=== PATIENT | male | born 1950 | race Caucasian/White ===

== ENCOUNTER 2018-03-10 13:25 | Outpatient (CLI) | payer BC, MEDICARE ==
[~2018-03-10] VITALS: Ht 167.6 cm; Wt 78.0 kg
[~2018-03-10 13:25] MED LIST: ASP325T PO; FENO145T2 PO; FLUT16SP22 NS; METO50TA7 PO; OLME40TA14 PO; RANI25TA PO; SMV20T PO
[2018-03-10 14:11] LABS: CLARITY,URINE CLEAR; COLOR,URINE YELLOW; PH,URINE 6.5 (5-9); PROTEIN,URINE NEGATIVE (NEGATIVE)
[2018-03-10 14:11] LABS: BASOPHILS # (AUTO) 0.1 10^3/uL (0.0-0.1); BASOPHILS % (AUTO) 1 % (0-10); EOSINOPHILS # (AUTO) 0.2 10^3/uL (0.0-0.3); EOSINOPHILS % (AUTO) 2 % (0-10); HEMATOCRIT 41 % (40-54); LYMPHOCYTES # (AUTO) 3.9 X 10^3 (1.0-4.0); LYMPHOCYTES % (AUTO) 35 % (12-44); MEAN CORPUSCULAR HEMOGLOBIN 30 PG (25-34); MEAN CORPUSCULAR HGB CONC 34 G/DL (32-36); MEAN CORPUSCULAR VOLUME 87 FL (80-99); MEAN PLATELET VOLUME 10.7 FL (7.4-10.4); MONOCYTES % (AUTO) 9 % (0-12); NEUTROPHILS # (AUTO) 5.9 X 10^3 (1.8-7.8); NEUTROPHILS % (AUTO) 53 % (42-75); PLATELET COUNT 393 10^3/uL (130-400); RED CELL DISTRIBUTION WIDTH 14.1 % (10.0-14.5); WHITE BLOOD COUNT 11.1 10^3/uL (4.3-11.0)
[2018-03-10 14:12] LABS: BILIRUBIN,URINE NEGATIVE (NEGATIVE); GLUCOSE, URINE (UA) NEGATIVE (NEGATIVE); KETONES,URINE NEGATIVE (NEGATIVE); LEUKOCYTE ESTERASE ,URINE NEGATIVE (NEGATIVE); NITRITE,URINE NEGATIVE (NEGATIVE); UROBILINOGEN,URINE NORMAL (NORMAL)
[2018-03-10 14:13] VITALS: BP 155/83
[2018-03-10] MEDS ORDERED: RANI-425 PO (14:20)
--- NOTE | 2018-03-10 14:26 | Diagnostic Imaging Report ---
INDICATION: Preop for total knee arthroplasty. TIME OF EXAMINATION: 02:30 p.m. COMPARISON: Comparison is made with prior study from 10/14/2010. FINDINGS: The heart size is normal. The pulmonary vascularity is unremarkable. The lungs are clear. No infiltrate, effusion or pneumothorax is detected. IMPRESSION: No acute cardiopulmonary process is detected. Dictated by: Dictated on workstation # [id number]
[2018-03-10 14:28] LABS: BACTERIA,URINE TRACE /HPF; SQUAMOUS EPITHELIAL CELL,UR RARE /HPF
[2018-03-10] MEDS ORDERED: ALPR0.254 PO (14:28)
[2018-03-10] MEDS ORDERED: ASPI-999 PO (14:28)
[2018-03-10] MEDS ORDERED: OMEG-164 PO (14:28)
[2018-03-10] MEDS ORDERED: HYDR25TA4 PO (14:28)
[2018-03-10] MEDS ORDERED: AMLO10TA4 PO (14:28)
[2018-03-10] MEDS ORDERED: FENO145T37 PO (14:28)
[2018-03-10] MEDS ORDERED: OLME40TA18 PO (14:28)
[2018-03-10] MEDS ORDERED: MELO15TA39 PO (14:28)
[2018-03-10] MEDS ORDERED: SIMV20TA3 PO (14:28)
[2018-03-10 14:30] LABS: ALANINE AMINOTRANSFERASE 29 U/L (0-55); ALBUMIN 4.6 GM/DL (3.2-4.5); ALKALINE PHOSPHATASE 40 U/L (40-136); BILIRUBIN,TOTAL 0.4 MG/DL (0.1-1.0); BUN/CREATININE RATIO 27; CALCIUM 11.1 MG/DL (8.5-10.1); CARBON DIOXIDE 27 MMOL/L (21-32); CHLORIDE 105 MMOL/L (98-107); CREATININE SERUM 1.07 MG/DL (0.60-1.30); GFR ESTIMATED > 60; GLUCOSE 104 MG/DL (70-105); POTASSIUM 3.5 MMOL/L (3.6-5.0); SODIUM 139 MMOL/L (135-145); TOTAL PROTEIN 7.6 GM/DL (6.4-8.2)
[2018-03-10 14:33] LABS: ERYTHROCYTE SEDIMENTATION RATE 1 MM/HR (0-30)
[2018-03-16] MEDS ORDERED: OXYC-197 PO (07:26)
== END 2018-03-10 14:25 | disposition home or self-care (01) ==
LOC: PREOP 13:25
PROVIDERS: ATTEND Orthopaedic Surgery
DX: Z01.811 Encounter for preprocedural respiratory examination (principal); Z01.812 Encounter for preprocedural laboratory examination; Z11.2 Encounter for screening for other bacterial diseases; M17.12 Unilateral primary osteoarthritis, left knee; R53.83 Other fatigue
CPT/HCPCS: 36415; 71046; 80053; 81000; 85025; 85610; 85652; 86850; 86900; 86901; 87081

== ENCOUNTER 2018-03-16 05:50 | Inpatient (IN) | payer BC, MEDICARE ==
--- NOTE | 2018-03-09 12:27 | HISTORY AND PHYSICAL ---
DATE OF SERVICE: ADMISSION HISTORY AND PHYSICAL This will be for date of service and date of admission of 03/16/2018 for left total knee arthroplasty. HISTORY OF PRESENT ILLNESS: The patient is a 67-year-old gentleman with progressively worsening left knee pain, swelling and activity limitations. Radiographs reveal severe medial and patellofemoral arthrosis with complete loss of joint space. He has undergone treatment in the past with arthroscopy, injections and anti-inflammatories without relief. He reports he is unable to participate in his activities of daily living because of the knee. Due to functional impairment and failure to improve with conservative measures, the patient elected to proceed with surgical intervention. REVIEW OF SYSTEMS: No chest pain, no shortness of breath and no dysuria. PAST MEDICAL HISTORY: Hypertension. PAST SURGICAL HISTORY: Heart catheterization and arthroscopy. FAMILY HISTORY: Ischemic heart disease and hypertension. PRIMARY CARE PROVIDER: MEDICATIONS: Alprazolam, TriCor, meloxicam, hydrochlorothiazide, Norvasc, Zocor, Benicar, aspirin and fish oil. ALLERGIES: No known drug allergies. SOCIAL HISTORY: The patient smokes half pack of cigarettes a day. Drinks alcohol daily. PHYSICAL EXAMINATION: GENERAL: The patient is well-developed, well-nourished, no acute distress. HEENT: Normocephalic and atraumatic. Pupils are equal, round and reactive to light. Oropharynx is clear. NECK: Supple and no lymphadenopathy. LUNGS: Clear to auscultation bilaterally. HEART: Regular rate and rhythm. ABDOMEN: Soft, nontender and nondistended. EXTREMITIES: The left knee demonstrates a slight effusion. There is no erythema or warmth. Range of motion is 0/3/125 with a negative Mir, negative anterior and posterior drawer. No varus valgus laxity and negative pivot shift. The patient ambulates with an antalgic gait. IMPRESSION: Severe left knee osteoarthritis. PLAN: Left total knee arthroplasty. The risks, benefits, options, ramifications and recovery have been discussed with the patient. He understands and wishes to proceed. He will require inpatient admission for pain management, gait abnormalities and weakness. Job ID: [id number] DocumentID: [id number] Dictated Date: 03/09/2018 12:04:06 Wool Spotter Date: 03/09/2018 12:27:08 Dictated By: JUAN DAVID WADDELL MD
[~2018-03-16] VITALS: Ht 167.6 cm; Wt 78.0 kg
[~2018-03-16 05:50] MED LIST changes: +ALPR0.254 PO; +AMLO10TA4 PO; +ASPI-999 PO; +FENO145T37 PO; +HYDR25TA4 PO; +MELO15TA39 PO; +OLME40TA18 PO; +OMEG-164 PO; +RANI-425 PO; +SIMV20TA3 PO
[2018-03-16] MEDS ORDERED: CEFUROXIME INJECTION 1,500 MG in NS (IVPB) 50 ML IV ONE (06:30)
[2018-03-16] MEDS ORDERED: ATRACURIUM 50 MG/5 ML (TRACRIUM) IV ONE ×2 (06:36→06:47)
[2018-03-16] MEDS ORDERED: CEFUROXIME 1.5 GM (ZINACEF) VIAL ONE (06:38)
[2018-03-16] MEDS ORDERED: NS (IVPB) 50 ML ONE (06:38)
[2018-03-16] MEDS ORDERED: MIDAZOLAM 2 MG/2 ML (VERSED) VIAL ONE (06:38)
[2018-03-16] MEDS ORDERED: DEXAMETHASONE 10 MG/ML (DECADRON) 1 ML VIAL ONE ×2 (06:41→06:47)
[2018-03-16] MEDS ORDERED: fentaNYL INJECTION 100 MCG/2 ML AMP ONE (06:41)
[2018-03-16] MEDS ORDERED: LIDOCAINE PF 2% 5 ML (XYLOCAINE) VIAL ONE ×3 (06:41→07:20)
[2018-03-16] MEDS ORDERED: ONDANSETRON 4 MG/2 ML (SDV) Z0FRAN ONE (06:41)
[2018-03-16] MEDS ORDERED: proPOfol 200 MG/20 ML (DIPRIVAN) VIAL IV ONE ×2 (06:41→06:47)
[2018-03-16] MEDS ORDERED: MIDAZOLAM 2 MG/2 ML (VERSED) VIAL IV ONE (06:45)
[2018-03-16] MEDS ORDERED: SEVOFLURANE (ULTANE) 15 ML INHAL SOLN ONE (06:47)
[2018-03-16] MEDS ORDERED: HURRICAINE EXT TUBE (BENZOCAINE) ONE (06:47)
[2018-03-16] MEDS ORDERED: LACTATED RINGERS 1,000 ML IV ONE (06:47)
[2018-03-16] MEDS: LACTATED RINGERS 1,000 ML IV PRN ×2 (06:49→07:45)
[2018-03-16] MEDS ORDERED: ACETAMINOPHEN 325 MG TABLET PO PRN (07:15)
[2018-03-16] MEDS ORDERED: diphenhydrAMINE 50 MG/ML INJ (BENADRYL) IVP PRN (07:15)
[2018-03-16] MEDS ORDERED: ONDANSETRON 4 MG/2 ML (SDV) Z0FRAN IVP PRN ×2 (07:15→09:30)
[2018-03-16] MEDS ORDERED: ROPIVACAINE 5MG/ML 30ML VIAL ONE (07:20)
--- NOTE | 2018-03-16 07:23 | Progress Note-Pre Operative ---
Pre-Operative Progress Note H&P Reviewed The H&P was reviewed, patient examined and no changes noted. Date Seen by Provider: Mar 16, 2018 Time Seen by Provider: 07:05 Date H&P Reviewed: Mar 16, 2018 Time H&P Reviewed: 07:05 Pre-Operative Diagnosis: left knee primary osteoarthritis JUAN DAVID WADDELL MD Mar 16, 2018 07:23
--- NOTE | 2018-03-16 07:25 | Progress Note-Post Operative ---
Post-Operative Progess Note Surgeon (s)/Resin Shaver (s) Surgeon JUAN DAVID WADDELL MD Resin Shaver: Armond Ortiz Pre-Operative Diagnosis left knee primary osteoarthritis Post-Operative Diagnosis left knee primary osteoarthritis Procedure & Operative Findings Date of Procedure 03/16/18 Procedure Performed/Findings left total knee arthroplasty Anesthesia Type GETA plus regional Estimated Blood Loss Estimated blood loss (mL): minimal Specimens/Packing Specimens Removed none Packing: none JUAN DAVID WADDELL MD Mar 16, 2018 07:25
[2018-03-16] MEDS ORDERED: OXYC-197 PO (07:26)
--- NOTE | 2018-03-16 07:28 | D/C HH Face to Face Order ---
D/C Face to Face Orders Instructions for Patient Patient Instructions/FollowUp: three weeks Physician to follow Patient: three weeks Discharge Diet for Home: Regular Diet Patient Data-Allergies,Ht & Wt Patient Allergies: Coded Allergies: No Known Drug Allergies (Unverified , 03/10/18) Height (Feet): 5 Height (Inches): 6.00 Weight (Pounds): 172 Weight (Ounces): 0.0 Home Health Need/Face to Face Date of Face to Face: Mar 16, 2018 Clinical Findings: Instability, Muscle weakness, Pain with ambulation, Unsteady gait I have seen Pt [id number]: Yes Discharged To: Home Diagnosis/Conditions: left total knee arthroplasty Patient is Homebound due to: Esa fall risk due to instabilty, Pain w/ ambulation Homebound Status Due to the above stated illness, injury or surgical procedure (medical condition or diagnosis) and associated clinical findings, the patient is homebound because of his/her inability to leave home except with aid of a supportive device and/or person AND leaving the home requires a considerable and taxing effort or is medically contraindicated. Pt req the following assistanc: Walker Home Health Nursing Orders Home Health Services Order: Physical Therapy-Evaluate & Treat Home Health Infusion Therapy Line Start Date: Mar 16, 2018 Line Start Time: 0615 Line Type: Peripheral IV Site Location: Forearm Therapy Orders Therapy Orders: PT to assess for OT Therapy Specific Orders: Eval assistive deivces, Teach enviro modifications/ safety, Gait training, Increase strength/endurance, Provider maintenance therapy , Restore ROM (DC left knee rosanna and apply steri strips 03/30/18) Certify Stmt I certify that this patient is under my care and that I, a nurse practitioner or a physician; a reading assistant working with me, had a face to face encounter that - meets the physician face to face encounter requirements with this patient as dated. JUAN DAVID WADDELL MD Mar 16, 2018 07:28
[2018-03-16] MEDS ORDERED: morphine INJ 10 MG/ML 1ML (SYR OR VIAL) ONE (09:21)
[2018-03-16] MEDS ORDERED: MEPERIDINE (DEMEROL) INJ 50 MG/ML IVP PRN (09:30)
[2018-03-16] MEDS: morphine INJ 10 MG/ML 1ML (SYR OR VIAL) IVP PRN ×2 (09:30→09:36)
[2018-03-16] MEDS ORDERED: HYDROmorphone 1 MG/ML (DILAUDID) 1 ML SYRINGE ONE (09:47)
--- NOTE | 2018-03-16 09:59 | Progress Note-Standard ---
Standard Progress Note Progress Notes/Assess & Plan Date Seen by Provider: Mar 16, 2018 Time Seen by Provider: 09:58 Progress/Assessment & Plan post op check No complaints radiographs--HW well positioned without fracture LLE--2 plus DP pulse with brisk cap refill, Intact DF and PF of toes and ankle with intact sensation throughout s/p LTKA Mobilize as able JUAN DAVID WADDELL MD Mar 16, 2018 09:59
[2018-03-16] MEDS ORDERED: HYDROmorphone 1 MG/ML (DILAUDID) 1 ML SYRINGE IV PRN (10:00)
[2018-03-16] MEDS ORDERED: morphine PCA 30 MG/30 ML VIAL IV ONE (10:39)
[2018-03-16] MEDS: NS IV 1000 ML 1,000 ML IV SCH ×2 (10:41→22:47)
[2018-03-16] MEDS ORDERED: ASPI-983 PO (10:42)
[2018-03-16] MEDS: morphine PCA 30 MG/30 ML VIAL IV PRN (10:49)
[2018-03-16] MEDS ORDERED: oxyCODONE/APAP 5/325MG (PERCOCET 5) TABLET ONE (11:21)
[2018-03-16 12:00] VITALS: BP 126/76
[2018-03-16] MEDS: SENNA W/DOCUSATE (SENOKOT S) TABLET PO SCH ×2 (12:01→20:02)
--- NOTE | 2018-03-16 12:26 | Diagnostic Imaging Report ---
EXAMINATION: Left knee in OR at 09:33 a.m. INDICATION: Postop. FINDINGS: AP and lateral views of the left knee were received from the OR. There are no prior studies available for comparison. There is a total knee prosthesis in place. The prosthetic components appear to be in good position. There is also a row of skin rosanna extending longitudinally along the anterior aspect of the knee joint. There is a fair amount of gas within the soft tissues of the knee joint and there is some gas within the joint itself. There is no fracture or acute bony abnormality appreciated. IMPRESSION: Stable postoperative left knee. Dictated by: Dictated on workstation # [id number]
--- NOTE | 2018-03-16 14:32 | OPERATIVE REPORT ---
DATE OF SERVICE: 03/16/2018 PREOPERATIVE DIAGNOSIS: Left knee primary osteoarthritis. POSTOPERATIVE DIAGNOSIS: Left knee primary osteoarthritis. PROCEDURE: Left total knee arthroplasty. SURGEON: Bhavin Waddell MD. SENIOR PLANNING MANAGER: Armond Ortiz, who assisted throughout the procedure and closed the incision. ANESTHESIA: General endotracheal by Dr. Kruse. TOURNIQUET TIME: Approximately 65 minutes at 300 mmHg. ESTIMATED BLOOD LOSS: Minimal. DRAINS: None. COMPLICATIONS: None. POSTOPERATIVE PLAN: Routine protocol. The patient was transported to the recovery room awake and in stable condition. MATERIALS: MicroPort cemented size 5 femur, cemented size 4+ tibia with 10 mm insert and a cemented size 32 patella. STATEMENT OF MEDICAL NECESSITY: The patient is a 67-year-old gentleman with longstanding progressive left knee pain, catching, locking and activity limitations. He had undergone treatment with injections with only temporary relief of the symptoms. Radiographs revealed severe medial and patellofemoral arthrosis and due to functional impairment and failure to improve with conservative measures, the patient elected to proceed with surgical intervention. DESCRIPTION OF PROCEDURE: After risks and benefits of the procedure were discussed and questions were answered, an informed consent was signed and placed on chart. The operative site was confirmed in the preoperative holding area initialed by the surgeon. The patient was then transferred to the operating room. After adequate levels of general endotracheal anesthetic were obtained, a timeout was called confirming the operative site. The left lower extremity was then prepped and draped in the usual sterile fashion with the leg elevated and the knee flexed, tourniquet inflated to 300 mmHg. A standard anterior approach was utilized. Hemostasis was obtained with cautery. A medial parapatellar arthrotomy was performed leaving 1 cm cuff on the patella for later reattachment. A portion of the fat pad was resected. The ACL was resected and a subperiosteal release was performed of the proximal medial tibia with a curved osteotome. The intramedullary guide was passed into the femur. The distal cutting block was placed and distal cut was made. The sizer was placed and the femur sized to a size 5. The 5 cutting block was placed parallel to the epicondylar axis and cuts were made from posterior to anterior. A subperiosteal release was then carefully performed on the posterior distal femur, being careful to stay on the bony surface. Intramedullary guide was passed into the tibia. The cutting block was placed. The drop dayday transected the intermalleolar axis and the cut was made. The 4+baseplate provided excellent coverage and the drop dayday again transected. The intermalleolar axis then prepared with a drill and keel punch. The femoral trial was placed and the trochlear cut was made. A 10 mm insert was placed. There was anterior translation in flexion. Therefore, a partial release of the PCL was performed off of its femoral attachment and this led to fluid range of motion with full extension and 130 degrees of flexion with gravity. No anterior/posterior or medial/lateral laxity in flexion or extension. The patella was then prepared using the freehand technique by resecting 10 mm off the undersurface of patella. Guide was placed and the drill holes were made. The patella trial was placed and the knee was taken through range of motion. The patella tracked well. The trials were removed. The joint was irrigated with pulse lavage. The bone ends were irrigated and dried and the tibial baseplate was cemented into position. Excessive cement was removed and the superior surface was irrigated and dried and the 10 mm insert was placed. The distal femur was irrigated and dried and the femoral prosthesis was cemented into position. Excess cement was removed. The knee was brought out into full extension and held until the cement had cured. The undersurface of patella was irrigated and dried and the patellar button was cemented into position. Excess cement was removed. Once the cement had cured, the knee was taken through range of motion. Full extension was easily obtained; 130 degrees of flexion with gravity was easily obtained. There was no anterior/posterior or medial/lateral laxity in flexion or extension. The joint was further irrigated with pulse lavage and the arthrotomy was closed with #2 Tevdek in [id number] interrupted fashion. The knee was flexed. Patella tracked well with no undue tension at the repair site. The subcutaneous tissues were irrigated using a total of 6 liters throughout the procedure. A 0 Vicryl was used to close the deep subcutaneous layer, 2-0 Vicryl for the superficial subcutaneous layer, rosanna used on the skin. A soft dressing was applied. The tourniquet was deflated. The patient was transported to the recovery room awake and in stable condition. Job ID: [id number] DocumentID: [id number] Dictated Date: 03/16/2018 09:20:54 Relief Charge Nurse Date: 03/16/2018 14:31:48 Dictated By: BHAVIN WADDELL MD
[2018-03-16] MEDS: oxyCODONE/APAP 5/325MG (PERCOCET 5) TABLET PO PRN ×2 (14:50→18:21)
--- NOTE | 2018-03-16 14:57 | Physical Therapy Progress Note ---
Therapy Progress Note CPM and pads applied at 1120. CPM 0-50 degrees. ALVIN MACDONALD PT Mar 16, 2018 14:57
--- NOTE | 2018-03-16 15:04 | Physical Therapy Evaluation ---
PT Evaluation-General Medical Diagnosis Admission Date Mar 16, 2018 at 05:50 Medical Diagnosis: Left knee OA Onset Date: Mar 16, 2018 Therapy Diagnosis Therapy Diagnosis: weakness; abn gait Height/Weight Height (Feet): 5 Height (Inches): 6.00 Weight (Pounds): 172 Weight (Ounces): 0.0 Precautions Precautions/Isolations: Fall Prevention, Standard Precautions Weight Bear Status Right Lower Extremity: Right Full Weight Bearing Left Lower Extremity: Left Weight Bearing/Tolerated Referral Physician: Rick Reason for Referral: Evaluation/Treatment Referral Comments TKR protocol Medical History Pertinent Medical History: HTN Additional Medical History Ischemic heart disease Current History Elective left TKR. 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 PT Evaluation-Current Subjective ;agrees to PT. Pain Numeric Pain Scale: 6 Location: Left Location Body Site: Knee Pain Description: Ache Pt/Family Goals Home CHAVO Objective Patient Orientation: Person, Place, Time, Situation Problem Solving: Good ROM/Strength ROM Lower Extremities Right knee LE WNL; LLE WNL except knee is 0-5-75 degrees. Strength Lower Extremities Right LE WNL; L LE grossly 3/5 Integumentary/Posture Integumentary Refer to nursing notes. Bowel Incontinence: No Bladder Incontinence: No Posture normal and symmetrical Neuromuscular (Tone, Coordination, Reflexes) No noted functional deficit Sensory Vision: Functional Hearing: Functional Hand Dominance: Right Sensation Right Lower Extremit: Intact Sensation Left Lower Extremity: Intact Transfers Functional [place] Measure 0=Not Assessed/NA 4=Minimal Assistance 1=Total Assistance 5=Supervision or Setup 2=Maximal Assistance 6=Modified [place] 3=Moderate Assistance 7=Complete [place] Transfers (B, C, W/C) (FIM): 4 Scootin Supine to/from Sit: 4 Sit to/from Stand: 4 Skilled cues for sequencing and task segmentation Gait Mode of Locomotion: Walk Anticipated Mode of Locomotion: Walk Gait (FIM): 2 Distance (FIM): 1=067-88 ft Distance: 125 ft Gait Level of Assist: 4 Gait Persons Needed: 1 Gait Assistive Device: FWW Comments/Gait Description Decreased step length with the right LE; decreased WB through the right. Slow gait. Balance Sitting Static: Normal Sitting Dynamic: Normal Standing Static: Fair Standing Dynamic: Fair Treatment UP in chair; performed AP and LAQ in sitting. Assessment/Needs Post left elective TKR. He has diminished strength and ROM and will benefit from skilled PT to address functional mobility as well as strength and ROM to return to PLOF and progress mobioltiy. Rehab Potential: Good PT Detention Goals Drawer In Jacquard Loom Goals PT Detention Goals Time Frame: Mar 21, 2018 Transfers (B,C,W/C) (FIM): 6 Gait (FIM): 6 Gait distance (FIM): 3=150 ft Gait Assistive Device: FWW Stairs (FIM): 5 PT Plan Problem List Problem List: Activity Tolerance, Functional Strength, Safety, Balance, Gait, Transfer, Bed Mobility Treatment/Plan Treatment Plan: Continue Plan of Care Treatment Plan: Bed Mobility, Education, Functional Activity Rasta, Functional Strength, Gait, Safety, Therapeutic Exercise, Transfers Treatment Duration: Mar 21, 2018 Frequency: 11 times per week Estimated Hrs Per Day: 1 hour per day Patient and/or Family Agrees t: Yes Safety Risks/Education Patient Education: Gait Training, Transfer Techniques Teaching Recipient: Patient Teaching Methods: Demonstration, Discussion Response to Teaching: Reinforcement Needed Time/GCodes Time In: 1340 Time Out: 1410 Total Billed Treatment Time: 30 Total Billed Treatment visit EVM 15 GT 15 ALVIN MACDONALD PT Mar 16, 2018 15:03
[2018-03-16] MEDS: CEFUROXIME INJECTION 750 MG in NS (IVPB) 50 ML IV SCH ×2 (15:08→23:08)
[2018-03-16 15:49] VITALS: BP 119/61
[2018-03-16 20:52] VITALS: BP 130/66
[2018-03-17] VITALS (7 sets, daily range): BP systolic 129–149; BP diastolic 3–73
[2018-03-17 06:19] LABS: HEMOGLOBIN 11.3 G/DL (13.3-17.7)
[2018-03-17] MEDS: MULTIVIT W/MINERALS TAB (THERAGRAN M) PO SCH (06:22)
--- NOTE | 2018-03-17 07:44 | Anesthesia-General Post-Op ---
General Patient Condition Mental Status/LOC: Same as Preop Cardiovascular: Satisfactory Nausea/Vomiting: Absent Respiratory: Satisfactory Pain: Controlled Complications: Absent Post Op Complications Complications None Follow Up Care/Instructions Patient Instructions None needed. Anesthesia/Patient Condition Patient Condition Patient is doing well, no complaints, stable vital signs, no apparent adverse anesthesia problems. No complications reported per nursing. D/C home per [facility] [place] Criteria: Yes WILLIS JEFF CRNA Mar 17, 2018 07:44
--- NOTE | 2018-03-17 07:52 | Progress Note-Standard ---
Standard Progress Note Progress Notes/Assess & Plan Date Seen by Provider: Mar 17, 2018 Time Seen by Provider: 07:51 Progress/Assessment & Plan post op check No complaints radiographs--HW well positioned without fracture LLE--2 plus DP pulse with brisk cap refill, Intact DF and PF of toes and ankle with intact sensation throughout s/p LTKA Mobilize as able Final Diagnosis No complaints Vital Signs Date Time Temp Pulse Resp B/P (MAP) Pulse Ox O2 Delivery O2 Flow Rate FiO2 03/17/18 04:00 98.0 69 20 141/67 (91) 98 Room Air 03/17/18 00:25 97.5 76 20 129/63 (85) 96 Room Air 03/16/18 21:25 Nasal Cannula 2.50 03/16/18 21:24 18 03/16/18 20:52 97.1 75 16 130/66 (87) 97 Room Air 03/16/18 17:20 96 Room Air 03/16/18 15:49 97.3 71 18 119/61 (80) 100 Nasal Cannula 2.50 03/16/18 12:00 97.0 65 18 126/76 (93) 97 Nasal Cannula 2.00 03/16/18 10:20 Nasal Cannula 2.00 I & O 03/17/18 07:00 Intake Total 3072 ml Output Total 600 ml Balance 2472 ml Laboratory Tests Test 03/17/18 05:50 Range/Units Hemoglobin 11.3 L 13.3-17.7 G/DL Hematocrit 33 L 40-54 % LLE--dressing intact. Flexion to 80. able to perform SLR. No calf tenderness. Neg Dorothy's s/p LTKA doing well mobilize JUAN DAVID WADDELL MD Mar 17, 2018 07:52
[2018-03-17] MEDS: oxyCODONE/APAP 5/325MG (PERCOCET 5) TABLET PO PRN ×5 (08:42→20:47)
[2018-03-17] MEDS: NS IV 1000 ML 1,000 ML IV SCH ×3 (08:43→22:50)
[2018-03-17] MEDS: ENOXAPARIN 30 MG/0.3 ML (LOVENOX) SYR SC SCH ×2 (08:43→20:47)
[2018-03-17] MEDS: SENNA W/DOCUSATE (SENOKOT S) TABLET PO SCH ×2 (08:47→20:52)
[2018-03-17] MEDS ORDERED: ASPIRIN E.C. 81 MG (ECOTRIN) TAB PO SCH (09:00)
--- NOTE | 2018-03-17 09:45 | Physical Therapy Daily Note ---
PT Daily Note-Current Subjective Patient agrees to PT. No c/o. Pain Numeric Pain Scale: 4 Location: Left Location Body Site: Knee Pain Description: Acute Mental Status Patient Orientation: Normal For Age Attachments: IV Transfers Functional [place] Measure 0=Not Assessed/NA 4=Minimal Assistance 1=Total Assistance 5=Supervision or Setup 2=Maximal Assistance 6=Modified [place] 3=Moderate Assistance 7=Complete IndependenceIRFPAI Quality Coding Scale 6 Independent with activity with or without an assistive device 5 Patient requires set up or clean up by helper. Patient completes activity by themselves 4 Supervision or touching assist (CGA). [place] provide cues , steadying assist 3 The helper provides less than half the effort to complete the activity 2 The helper provides more than half the effort to complete the activity 1 Dependent. The helper does all the effort to complete an activity 7 Patient refused to complete or attempt activity 9 The patient did not perform the activity before the current illness or injury 88 Not attempted due to Medical conditions or safety concerns Transfers (B, C, W/C) (FIM): 6 Scootin Rollin Supine to/from Sit: 6 Sit to/from Stand: 6 Weight Bearing Right Lower Extremity: Right Full Weight Bearing Left Lower Extremity: Left Weight Bearing/Tolerated Gait Training Gait (FIM): 6 Distance (FIM): 3=150 ft Distance: 300' Gait Level of Assist: 6 Gait Assistive Device: FWW slow, antalgic Exercises Supine Ex: Ankle pumps, Quad Set, Heel Slides Supine Reps: 10 Seated Therapy Exercises: Long arc quads Seated Reps: 25 Treatments CPM 0-75 degrees Assessment Patient progressing with treatment plan. PT to increase activity as tolerated by patient. PT Final Expense Agent Goals [facility] Goals PT [facility] Goals Time Frame: Mar 21, 2018 Transfers (B,C,W/C) (FIM): 6 Gait (FIM): 6 Gait distance (FIM): 3=150 ft Gait Assistive Device: FWW Stairs (FIM): 5 PT Plan Treatment/Plan Treatment Plan: Continue Plan of Care Treatment Plan: Bed Mobility, Education, Functional Activity [place]asta, Functional Strength, Gait, Safety, Therapeutic Exercise, Transfers Treatment Duration: Mar 21, 2018 Frequency: 11 times per week Estimated Hrs Per Day: 1 hour per day Patient and/or Family Agrees t: Yes Time/GCodes Time In: 830 Time Out: 855 Total Billed Treatment Time: 25 Total Billed Treatment 1 visit EX 8 min GT 17 min DANETTE RESTREPO PT Mar 17, 2018 09:45
--- NOTE | 2018-03-17 12:55 | Physical Therapy Daily Note ---
PT Daily Note-Current Subjective Patient agrees to PT. 8/10 left knee pain. Pain Numeric Pain Scale: 8 Location: Left Location Body Site: Knee Pain Description: Acute Mental Status Patient Orientation: Normal For Age Attachments: IV Transfers Functional [place] Measure 0=Not Assessed/NA 4=Minimal Assistance 1=Total Assistance 5=Supervision or Setup 2=Maximal Assistance 6=Modified [place] 3=Moderate Assistance 7=Complete IndependenceIRFPAI Quality Coding Scale 6 Independent with activity with or without an assistive device 5 Patient requires set up or clean up by helper. Patient completes activity by themselves 4 Supervision or touching assist (CGA). [place] provide cues , steadying assist 3 The helper provides less than half the effort to complete the activity 2 The helper provides more than half the effort to complete the activity 1 Dependent. The helper does all the effort to complete an activity 7 Patient refused to complete or attempt activity 9 The patient did not perform the activity before the current illness or injury 88 Not attempted due to Medical conditions or safety concerns Transfers (B, C, W/C) (FIM): 6 Scootin Rollin Supine to/from Sit: 6 Sit to/from Stand: 6 Weight Bearing Right Lower Extremity: Right Full Weight Bearing Left Lower Extremity: Left Weight Bearing/Tolerated Gait Training Gait (FIM): 6 Distance (FIM): 3=150 ft Distance: 300' Gait Level of Assist: 6 Gait Assistive Device: FWW slow, antalgic, functional Exercises Supine Ex: Ankle pumps, Quad Set, Heel Slides, Straight leg raise Supine Reps: 15 Seated Therapy Exercises: Long arc quads Assessment Patient tolerated treatment well and is up in recliner with needs met. Patient is progressing as plan. PT Sales Support Coordinator Goals [facility]sp Goals PT [facility]sp Goals Time Frame: Mar 21, 2018 Transfers (B,C,W/C) (FIM): 6 Gait (FIM): 6 Gait distance (FIM): 3=150 ft Gait Assistive Device: FWW Stairs (FIM): 5 PT Plan Treatment/Plan Treatment Plan: Continue Plan of Care Treatment Plan: Bed Mobility, Education, Functional Activity [place], Functional Strength, Gait, Safety, Therapeutic Exercise, Transfers Treatment Duration: Mar 21, 2018 Frequency: 11 times per week Estimated Hrs Per Day: 1 hour per day Patient and/or Family Agrees t: Yes Time/GCodes Time In: 1225 Time Out: 1250 Total Billed Treatment Time: 25 Total Billed Treatment 1 visit EX 15 min GT 10 min DANETTE RESTREPO PT Mar 17, 2018 12:55
[2018-03-17] MEDS: morphine PCA 30 MG/30 ML VIAL IV PRN (13:50)
--- NOTE | 2018-03-17 14:24 | Occ Therapy Progress Note ---
Therapy Progress Note OT order received, chart reviewed. Spoke with pt. and family. Explained who OT was and what goals are. Pt. states that he is doing well. States that he was able to put his pants on earlier, and that he has been able to toilet. Pt. states that he does not feel that he will have difficulty with this. Spoke with pt. about AE if needed. Family reports no concerns except possibly stairs. OT demonstrated using walker to get up steps, (3 in garage), but will also let PT know for stair training. Pt. verbalizes all understanding. Thank you for this referral and this OT will be happy to come back if pt. feels he needs it. 1, visit [id number] ENZO MONTOYA OT Mar 17, 2018 14:24
[2018-03-17] MEDS ORDERED: PATIENT MAY USE OWN MEDS, ALL MC SCH (16:15)
[2018-03-17] MEDS ORDERED: raNItidine (ZANTAC) 150 MG TAB NON-FORMULARY PO SCH (18:00)
[2018-03-17] MEDS ORDERED: SIMvastatin 20 MG (ZOCOR) TAB PO SCH (21:00)
[2018-03-18] MEDS: oxyCODONE/APAP 5/325MG (PERCOCET 5) TABLET PO PRN ×2 (02:59→07:43)
[2018-03-18 03:09] VITALS: BP 131/64
[2018-03-18 05:54] LABS: HEMOGLOBIN 10.4 G/DL (13.3-17.7)
[2018-03-18] MEDS ORDERED: ALPRAZolam 0.25 MG (XANAX) TAB PO SCH ×2 (06:00→09:00)
[2018-03-18] MEDS: MULTIVIT W/MINERALS TAB (THERAGRAN M) PO SCH (06:21)
[2018-03-18] MEDS ORDERED: OMEGA 3 (FISH OIL) 1000 MG CAP PO SCH (07:00)
--- NOTE | 2018-03-18 07:11 | Progress Note-Standard ---
Standard Progress Note Progress Notes/Assess & Plan Date Seen by Provider: Mar 18, 2018 Time Seen by Provider: 07:10 Progress/Assessment & Plan post op check No complaints radiographs--HW well positioned without fracture LLE--2 plus DP pulse with brisk cap refill, Intact DF and PF of toes and ankle with intact sensation throughout s/p LTKA Mobilize as able Final Diagnosis would like to go ;home Vital Signs Date Time Temp Pulse Resp B/P (MAP) Pulse Ox O2 Delivery O2 Flow Rate FiO2 03/18/18 03:09 98.9 78 18 131/64 (86) 93 Room Air 03/17/18 23:27 99.1 77 18 135/66 (89) 94 Room Air 03/17/18 20:47 Room Air 03/17/18 19:50 99.0 77 16 144/67 (92) 95 Room Air 03/17/18 16:00 Room Air 03/17/18 15:54 98.7 71 16 149/69 (95) 98 Room Air 03/17/18 15:40 Room Air 03/17/18 13:50 8 03/17/18 12:00 98.1 74 18 132/73 (92) 98 Room Air 03/17/18 09:00 97 Room Air 2.50 03/17/18 08:00 97.3 71 18 138/63 (88) 97 Room Air 03/17/18 08:00 97.3 71 18 138/63 (88) 97 Room Air I & O 03/18/18 07:00 Intake Total 3250 ml Balance 3250 ml Laboratory Tests Test 03/18/18 05:15 Range/Units Hemoglobin 10.4 L 13.3-17.7 G/DL Hematocrit 32 L 40-54 % L knee incision clean and dry. No calf tenderness. Neg gabriela's s/p LTKA doing well DC home JUAN DAVID WADDELL MD Mar 18, 2018 07:11
[2018-03-18] MEDS ORDERED: morphine INJ 4 MG/ML 1 ML (VIAL/SYRINGE) IVP PRN (07:15)
[2018-03-18] MEDS: ENOXAPARIN 30 MG/0.3 ML (LOVENOX) SYR SC SCH (07:44)
[2018-03-18 08:00] VITALS: BP 115/58
[2018-03-18] MEDS: SENNA W/DOCUSATE (SENOKOT S) TABLET PO SCH (08:35)
[2018-03-18] MEDS ORDERED: OXYC-197 PO (08:45)
[2018-03-18] MEDS ORDERED: OLMESARTAN MEDOXOMIL 40 MG PO SCH (09:00)
[2018-03-18] MEDS ORDERED: ASPIRIN E.C. 81 MG (ECOTRIN) TAB PO SCH (09:00)
[2018-03-18] MEDS ORDERED: Meloxicam 15 MG TABLET PO SCH (09:00)
[2018-03-18] MEDS ORDERED: HYDROCHLOROTHIAZIDE 25 MG (HCTZ) TAB PO SCH (09:00)
[2018-03-18] MEDS ORDERED: amLODIPine 10 MG (NORVASC) TAB PO SCH (09:00)
--- NOTE | 2018-03-19 00:02 | DISCHARGE SUMMARY ---
DATE OF SERVICE: DIAGNOSES: 1. Left knee primary osteoarthritis. 2. Hypertension. 3. Anxiety. PROCEDURE: Left total knee arthroplasty. SUMMARY: The patient is a 67-year-old gentleman who underwent a left total knee arthroplasty on the day of admission. Postoperatively, he did very well. At the time of discharge, his wound was clean and dry. No calf tenderness. Negative Homans sign. He had active flexion to 90 degrees. He was tolerating his diet well and tolerating pain with oral pain medication. CONDITION AT DISCHARGE: Good. DISCHARGE DIET: Regular. FOLLOWUP: Follow up is in three weeks. Home physical therapy has been arranged. Job ID: [id number] DocumentID: [id number] Dictated Date: 03/18/2018 07:12:33 Assistive Technology Specialist Date: 03/19/2018 00:01:45 Dictated By: JUAN DAVID WADDELL MD
== END 2018-03-18 09:20 | disposition home health service (06) | DRG 470 ==
LOC: 4TH 05:50 → SURG 05:51 → 4TH 10:20
PROVIDERS: ADMIT Orthopaedic Surgery; ATTEND Orthopaedic Surgery
PROC: 0SRD0J9 Replacement of Left Knee Joint with Synthetic Substitute, Cemented, Open Approach (ICD-10-PCS; principal; 2018-03-16 07:28)
DX: M17.12 Unilateral primary osteoarthritis, left knee (principal); I10 Essential (primary) hypertension; F41.9 Anxiety disorder, unspecified; F17.210 Nicotine dependence, cigarettes, uncomplicated; K21.9 Gastro-esophageal reflux disease without esophagitis; Z72.89 Other problems related to lifestyle
CPT/HCPCS: 36415; 73560; 85014; 85018; 86850; 86900; 86901; 94664

== ENCOUNTER 2018-09-08 12:28 | Outpatient (CLI) | payer BC, MEDICARE ==
[~2018-09-08] VITALS: Ht 167.6 cm; Wt 82.1 kg
[~2018-09-08 12:28] MED LIST changes: +ASPI-983 PO; +OXYC1TAB87 PO; -RANI-425 PO; +RANI-591 PO
[2018-09-08 12:37] VITALS: BP 156/79
[2018-09-08 12:59] LABS: BASOPHILS # (AUTO) 0.1 10^3/uL (0.0-0.1); BASOPHILS % (AUTO) 1 % (0-10); EOSINOPHILS # (AUTO) 0.4 10^3/uL (0.0-0.3); EOSINOPHILS % (AUTO) 4 % (0-10); HEMATOCRIT 44 % (40-54); HEMOGLOBIN 14.4 G/DL (13.3-17.7); LYMPHOCYTES # (AUTO) 3.3 X 10^3 (1.0-4.0); LYMPHOCYTES % (AUTO) 34 % (12-44); MEAN CORPUSCULAR HEMOGLOBIN 29 PG (25-34); MEAN CORPUSCULAR HGB CONC 33 G/DL (32-36); MEAN CORPUSCULAR VOLUME 88 FL (80-99); MONOCYTES # (AUTO) 0.8 X 10^3 (0.0-1.0); MONOCYTES % (AUTO) 9 % (0-12); NEUTROPHILS # (AUTO) 5.1 X 10^3 (1.8-7.8); NEUTROPHILS % (AUTO) 53 % (42-75); PLATELET COUNT 343 10^3/uL (130-400); RED BLOOD COUNT 5.05 10^6/uL (4.35-5.85); WHITE BLOOD COUNT 9.6 10^3/uL (4.3-11.0)
[2018-09-08 13:01] LABS: BILIRUBIN,URINE NEGATIVE (NEGATIVE); CLARITY,URINE CLEAR; COLOR,URINE YELLOW; GLUCOSE, URINE (UA) NEGATIVE (NEGATIVE); KETONES,URINE NEGATIVE (NEGATIVE); LEUKOCYTE ESTERASE ,URINE NEGATIVE (NEGATIVE); NITRITE,URINE NEGATIVE (NEGATIVE); PH,URINE 7 (5-9); PROTEIN,URINE NEGATIVE (NEGATIVE); UROBILINOGEN,URINE NORMAL (NORMAL)
[2018-09-08 13:19] LABS: INR 0.9 (0.8-1.4); PROTHROMBIN TIME PATIENT 12.4 SEC (12.2-14.7)
[2018-09-08 13:21] LABS: ALANINE AMINOTRANSFERASE 31 U/L (0-55); ALBUMIN 4.6 GM/DL (3.2-4.5); ALKALINE PHOSPHATASE 44 U/L (40-136); BILIRUBIN,TOTAL 0.4 MG/DL (0.1-1.0); BUN/CREATININE RATIO 22; CALCIUM 10.3 MG/DL (8.5-10.1); CARBON DIOXIDE 26 MMOL/L (21-32); CHLORIDE 106 MMOL/L (98-107); GFR ESTIMATED > 60; GLUCOSE 99 MG/DL (70-105); POTASSIUM 3.5 MMOL/L (3.6-5.0); SODIUM 142 MMOL/L (135-145); TOTAL PROTEIN 7.6 GM/DL (6.4-8.2)
[2018-09-08 13:24] LABS: BACTERIA,URINE NEGATIVE /HPF
[2018-09-08 13:27] LABS: ERYTHROCYTE SEDIMENTATION RATE 1 MM/HR (0-30)
== END 2018-09-08 13:00 | disposition home or self-care (01) ==
LOC: PREOP 12:28
PROVIDERS: ATTEND Orthopaedic Surgery
DX: Z01.812 Encounter for preprocedural laboratory examination (principal); Z11.2 Encounter for screening for other bacterial diseases; M17.11 Unilateral primary osteoarthritis, right knee; R53.83 Other fatigue
CPT/HCPCS: 36415; 80053; 81000; 85025; 85610; 85652; 86850; 86900; 86901; 87081

== ENCOUNTER 2018-09-14 06:12 | Inpatient (IN) | payer BC, MEDICARE ==
--- NOTE | 2018-09-02 17:06 | HISTORY AND PHYSICAL ---
DATE OF SERVICE: ADMISSION HISTORY AND PHYSICAL DATE OF ADMISSION: 09/14/2018. This will be for inpatient admission on 09/14/2018 for right total knee arthroplasty. HISTORY OF PRESENT ILLNESS: The patient is a 67-year-old gentleman with known right knee osteoarthritis. He has previously undergone injections with only temporary relief of his symptoms. He has difficulty with activities of daily living because of the knee. Radiographs reveal severe medial and patellofemoral arthrosis. Due to functional impairment and failure to improve with conservative measures, the patient would like to proceed with surgical intervention. REVIEW OF SYSTEMS: No chest pain and no shortness of breath. No dysuria. PAST MEDICAL HISTORY: Hypertension. PAST SURGICAL HISTORY: Left total knee arthroplasty and heart catheterization. FAMILY HISTORY: Significant for hypertension and ischemic heart disease. PRIMARY CARE PROVIDER: Dr. Rosario. MEDICATIONS: Alprazolam, TriCor, Meloxicam, hydrochlorothiazide, Norvasc, Zocor, Benicar, aspirin, fish oil and oxycodone. ALLERGIES: No known allergies. SOCIAL HISTORY: The patient smokes half a pack per day, drinks alcohol daily. PHYSICAL EXAMINATION: GENERAL: The patient is well developed and well nourished, in no acute distress. HEENT: Normocephalic and atraumatic. Pupils are equal, round and reactive to light. Oropharynx is clear. NECK: Supple with no lymphadenopathy. LUNGS: Clear to auscultation bilaterally. HEART: Regular rate and rhythm. ABDOMEN: Soft, nontender and nondistended. EXTREMITIES: His right lower extremity demonstrates varus alignment. He ambulates with an antalgic gait. Range of motion is 0/3/120 in the right knee. There is a slight effusion. No skin lesions are noted. There is no varus valgus laxity. Negative anterior and posterior drawer. IMPRESSION: Right knee severe osteoarthritis unresponsive to conservative measures. PLAN: Right total knee arthroplasty. The risks, benefits, options, ramifications and recovery were discussed at length with the patient. He understands and wishes to proceed. He is ready for inpatient admission on 09/14/2018. The patient will require regular inpatient admission due to pain management, gait abnormalities and weakness. Job ID: [id number] DocumentID: [id number] Dictated Date: 09/02/2018 11:24:45 All Source Intelligence Analyst Date: 09/02/2018 11:36:18 Dictated By: JUAN DAVID WADDELL MD
[~2018-09-14] VITALS: Ht 167.6 cm; Wt 82.1 kg
[2018-09-14 06:20] VITALS: BP 139/75
[2018-09-14] MEDS ORDERED: CEFUROXIME INJECTION 1,500 MG in NS (IVPB) 50 ML IV ONE (06:30)
[2018-09-14] MEDS: LACTATED RINGERS 1,000 ML IV PRN ×2 (06:31→07:49)
[2018-09-14] MEDS ORDERED: CATHETER FLUSH 10 ML SYR IV PRN (06:45)
[2018-09-14] MEDS ORDERED: LIDOCAINE PF 2% 5 ML (XYLOCAINE) VIAL ONE (06:48)
[2018-09-14] MEDS ORDERED: ROPIVACAINE 5MG/ML 30ML VIAL ONE (06:48)
[2018-09-14] MEDS ORDERED: MIDAZOLAM 2 MG/2 ML (VERSED) VIAL ONE (06:48)
[2018-09-14] MEDS ORDERED: fentaNYL INJECTION 100 MCG/2 ML AMP ONE ×3 (06:49→09:03)
[2018-09-14] MEDS ORDERED: DEXAMETHASONE 10 MG/ML (DECADRON) 1 ML VIAL ONE (06:49)
[2018-09-14] MEDS ORDERED: ONDANSETRON 4 MG/2 ML (SDV) Z0FRAN ONE (06:49)
[2018-09-14] MEDS ORDERED: proPOfol 200 MG/20 ML (DIPRIVAN) VIAL IV ONE (06:49)
[2018-09-14] MEDS ORDERED: SEVOFLURANE (ULTANE) 15 ML INHAL SOLN ONE (07:11)
[2018-09-14] MEDS ORDERED: TRANEXAMIC ACID 100 MG/ML 10 ML INJECTION IV ONE (07:16)
--- NOTE | 2018-09-14 07:24 | Progress Note-Pre Operative ---
Pre-Operative Progress Note H&P Reviewed The H&P was reviewed, patient examined and no changes noted. Date Seen by Provider: Sep 14, 2018 Time Seen by Provider: 07:24 Date H&P Reviewed: Sep 14, 2018 Time H&P Reviewed: 07:24 Pre-Operative Diagnosis: right knee primary osteoarthritis JUAN DAVID WADDELL MD Sep 14, 2018 07:24
--- NOTE | 2018-09-14 07:25 | Progress Note-Post Operative ---
Post-Operative Progess Note Surgeon (s)/Supervisor/Port Director (s) Surgeon JUAN DAVID WADDELL MD Supervisor/Port Director: abby Ortiz Pre-Operative Diagnosis right knee primary osteoarthritis Post-Operative Diagnosis right knee primary osteoarthritis Procedure & Operative Findings Date of Procedure 09/14/18 Procedure Performed/Findings right total knee arthroplasty Anesthesia Type GETA plus block Estimated Blood Loss Estimated blood loss (mL): minimal Specimens/Packing Specimens Removed none Packing: none JUAN DAVID WADDELL MD Sep 14, 2018 07:25
--- NOTE | 2018-09-14 07:27 | D/C HH Face to Face Order ---
D/C Face to Face Orders Instructions for Patient Via [facility], Patient Instructions/FollowUp: three weeks Physician to follow Patient: three weeks Discharge Diet for Home: No Restrictions Patient Data-Allergies,Ht & Wt Patient Allergies: Coded Allergies: No Known Drug Allergies (Unverified , 03/10/18) Height (Feet): 5 Height (Inches): 6.00 Weight (Pounds): 181 Weight (Ounces): 0.0 Home Health Need/Face to Face Date of Face to Face: Sep 14, 2018 Clinical Findings: Instability, Muscle weakness, Pain with ambulation, Unsteady gait I have seen Pt [id number]: Yes Discharged To: Home Diagnosis/Conditions: right total knee arthroplasty Patient is Homebound due to: Esa fall risk due to instabilty, Muscle weakness , Pain w/ambulation Homebound Status Due to the above stated illness, injury or surgical procedure (medical condition or diagnosis) and associated clinical findings, the patient is homebound because of his/her inability to leave home except with aid of a supportive device and/or person AND leaving the home requires a considerable and taxing effort or is medically contraindicated. Pt req the following assistanc: [facility] Nursing Orders Home Health Services Order: Physical Therapy-Evaluate & Treat Home Health Infusion Therapy Line Start Date: Sep 14, 2018 Line Start Time: 0615 Line Type: Peripheral IV Site Location: Wrist Therapy Orders Therapy Orders: Physical Therapy, PT to assess for OT Therapy Specific Orders: Eval assistive deivces, Teach enviro modifications/ safety, Gait training, Increase strength/endurance, Provider maintenance therapy , Restore ROM DC right knee rosanna and apply steri strips 09/28/18 Certify Stmt I certify that this patient is under my care and that I, a nurse practitioner or a physician; a mobile unit assistant working with me, had a face to face encounter that - meets the physician face to face encounter requirements with this patient as dated. JUAN DAVID WADDELL MD Sep 14, 2018 07:27
[2018-09-14] MEDS ORDERED: OXYC1TAB87 PO (07:28)
[2018-09-14] MEDS ORDERED: MEPERIDINE (DEMEROL) INJ 50 MG/ML IVP ONE (07:30)
[2018-09-14] MEDS ORDERED: ONDANSETRON 4 MG/2 ML (SDV) Z0FRAN IVP PRN ×2 (07:30)
[2018-09-14] MEDS ORDERED: diphenhydrAMINE 50 MG/ML INJ (BENADRYL) IVP PRN (07:30)
[2018-09-14] MEDS ORDERED: morphine PCA 100 MG/100 ML BAG IV PRN (07:30)
[2018-09-14] MEDS ORDERED: ACETAMINOPHEN 325 MG TABLET PO PRN (07:30)
[2018-09-14] MEDS ORDERED: morphine INJ 10 MG/ML 1ML (SYR OR VIAL) IVP ONE (07:30)
[2018-09-14] MEDS ORDERED: fentaNYL INJECTION 100 MCG/2 ML AMP IVP ONE (07:30)
[2018-09-14] MEDS ORDERED: INTRA-ARTICULAR IU ONE ×5 (07:45)
[2018-09-14] MEDS ORDERED: ROCURONIUM 10 MG/ML 5 ML SYRINGE IV ONE (08:45)
[2018-09-14] MEDS: SENNA W/DOCUSATE (SENOKOT S) TABLET PO SCH ×2 (09:00→22:00)
[2018-09-14] MEDS ORDERED: NEOSTIGMINE 1 MG/ML 5 ML SYRINGE ONE (09:03)
[2018-09-14] MEDS ORDERED: GLYCOPYRROLATE 0.2 MG/ML (ROBINUL) 2 ML VIAL ONE (09:03)
[2018-09-14] MEDS ORDERED: RT-ALBUTEROL HFA (VENTOLIN) PER PUFF IH ONE (09:13)
[2018-09-14] MEDS ORDERED: morphine INJ 10 MG/ML 1ML (SYR OR VIAL) ONE (09:27)
--- NOTE | 2018-09-14 10:15 | Diagnostic Imaging Report ---
INDICATION: Postop right knee replacement. TIME OF EXAMINATION: 09:24 a.m. FINDINGS: Two views of the right knee demonstrate postop changes of total knee arthroplasty. Prosthetic elements are in good position. No fracture or loosening is seen. Overlying skin rosanna are noted. IMPRESSION: Satisfactory postop right knee. Dictated by: Dictated on workstation # [id number]
--- NOTE | 2018-09-14 10:24 | Progress Note-Standard ---
Standard Progress Note Progress Notes/Assess & Plan Date Seen by a Provider: Sep 14, 2018 Time Seen by a Provider: 10:10 Progress/Assessment & Plan post op check no complaints radiographs hardware well aligned. no fractures RLE--intact DF and PF of toes and ankle. 2 plus DP pulse with brisk cap refill. sensation intact throughout s/p RTKA mobilize as able JUAN DAVID WADDELL MD Sep 14, 2018 10:24
--- NOTE | 2018-09-14 10:40 | NUR ---
PATIENT BROUGHT TO ROOM VIA HOSPITAL BED, ACCOMPANIED BY AND CARE SPECIALIST. REPORT RECEIVED. PT. ORIENTED TO ROOM AND CALL LIGHT. PT. COMPLAINED OF PAIN. CUPOLA WORKER MORPHINE STARTED.
[2018-09-14 12:00] VITALS: BP 144/76
--- NOTE | 2018-09-14 12:23 | OPERATIVE REPORT ---
DATE OF SERVICE: 09/14/2018 PREOPERATIVE DIAGNOSIS: Right knee primary osteoarthritis. POSTOPERATIVE DIAGNOSIS: Right knee primary osteoarthritis. PROCEDURE: Right total knee arthroplasty. SURGEON: hBavin Waddell MD. STERNMAN: Armond Ortiz, who assisted throughout the procedure and closed the incisions. ANESTHESIA: General endotracheal plus adductor canal block by Armond Garcia CRNA. TOURNIQUET TIME: 63 minutes at 300 mmHg. ESTIMATED BLOOD LOSS: Minimal. DRAINS: None. COMPLICATIONS: None. POSTOPERATIVE PLANS: Routine total knee protocol. MATERIALS: MicroPort cemented size 4 femur, cemented size 4 tibia with a 10 mm insert and a cemented size 32 patella. STATEMENT OF MEDICAL NECESSITY: The patient is a 68-year-old gentleman with longstanding progressive right knee pain. Radiographs reveal severe tricompartmental osteoarthritis. He had undergone treatment with injections, anti-inflammatories and rest without relief. Due to functional impairment and failure to improve with conservative measures, the patient elected to proceed with surgical intervention. DESCRIPTION OF PROCEDURE: After risks and benefits of the procedure were discussed and questions were answered and informed consent was signed and placed on chart, the operative site was confirmed in the preoperative holding area initialed by the surgeon. The patient was transferred to the operating room and after adequate levels of general endotracheal anesthetic were obtained, a timeout was called confirming the operative site. The right lower extremity was prepped and draped in the usual sterile fashion with the leg elevated and the knee flexed. Tourniquet was inflated to 300 mmHg. Standard anterior approach was utilized. Hemostasis was obtained with cautery. Medial parapatellar arthrotomy was performed leaving 1 cm cuff on the patella for later reapproximation. A portion of the fat pad was resected. A subperiosteal release was performed on the proximal medial tibia being careful to stay on the bony surface. The ACL was resected. The intramedullary guide was passed into the femoral canal and the distal cutting block was placed. Distal cut was made and the femur sized to a size 4. The 4 cutting block was placed parallel to the epicondylar axis and the cuts were made from posterior to anterior. Subperiosteal release was then carefully performed on the posterior distal femur, being careful to stay on the bony surface. Intramedullary guide was then passed into the tibia. The cutting block was placed. The drop dayday transected the axis and the cut was made. The size 4 baseplate was placed and the drop dayday transected the axis. This was then prepared with the drill and keel punch. The trials were inserted. The patella was then prepared by resecting 10 mm off the undersurface. The peg guide was placed and the peg holes were drilled. The trials were inserted with a 10 mm insert. Full extension was easily obtained, 120 degrees of flexion with gravity was easily obtained. The patella tracked well. There was no anterior/posterior or medial/lateral laxity in flexion or extension. The trials were removed. The joint was irrigated with pulse lavage. The periarticular block was placed in the posterior capsule, medial and lateral retinaculum and extensor mechanism as well as subcutaneous tissues. The joint was further irrigated. The bone ends were irrigated and dried. The tibial baseplate was cemented into position. Excess cement was removed. The superior surface was irrigated and dried. The polyethylene insert was placed. The distal femur was irrigated and dried and the femoral prosthesis was cemented into position. Excessive cement was removed. The knee was brought out into full extension until the cement had cured. The undersurface of the patella was irrigated and dried. The patellar button was cemented into position. Excessive cement was removed. Once the cement had cured, the knee was taken through range of motion. Full extension was easily obtained, 120 degrees of flexion with gravity was easily obtained. The patella tracked well. There was no anterior/posterior or medial/lateral laxity in flexion or extension. The joint was further irrigated with pulse lavage. The arthrotomy was closed with #2 Tevdek in gixtkg-at-yfbal interrupted fashion. The knee was flexed and the repair was stable. Subcutaneous tissues were irrigated using a total of 6 liters throughout the procedure. A 0 Vicryl was used for the deep subcutaneous tissue, 2-0 Vicryl for the superficial subcutaneous tissue, rosanna used on the skin. A sterile dressing was applied. The tourniquet was deflated and the patient was transported to recovery room in awake and stable condition. Job ID: [id number] DocumentID: [id number] Dictated Date: 09/14/2018 09:22:35 Winter Sports Manager Date: 09/14/2018 12:22:28 Dictated By: BHAVIN WADDELL MD
[2018-09-14] MEDS: NS IV 1000 ML 1,000 ML IV SCH (12:51)
--- NOTE | 2018-09-14 14:05 | Physical Therapy Evaluation ---
PT Evaluation-General Medical Diagnosis Admission Date Sep 14, 2018 at 06:12 Medical Diagnosis: R TKA Onset Date: Sep 14, 2018 Therapy Diagnosis Therapy Diagnosis: weakness, Decreased AROM, decreased mobility, gait deviation Height/Weight Height (Feet): 5 Height (Inches): 6.00 Weight (Pounds): 181 Weight (Ounces): 0.0 Precautions Precautions/Isolations: Fall Prevention, Standard Precautions Weight Bear Status Right Lower Extremity: Right Weight Bearing/Tolerated Left Lower Extremity: Left Full Weight Bearing Referral Physician: Armond Ortiz Reason for Referral: Evaluation/Treatment Medical History Pertinent Medical History: HTN, Smoking Social History Home: Single Level Current Living Status: Spouse Entry Into Home: Stairs Without Railing PT Steps Into Home: 3 Prior/Core FIM Prior Level of Function Therapy Code Descriptions/Definitions Functional Pickett Measure: 0=Not Assessed/NA 4=Minimal Assistance 1=Total Assistance 5=Supervision or Setup 2=Maximal Assistance 6=Modified Pickett 3=Moderate Assistance 7=Complete Pickett Therapy Quality Codes: 6 Independent with activity with or without an assistive device 5 Patient requires set up or clean up by helper. Patient completes activity by themselves 4 Supervision or touching assist (CGA). [place] provide cues , steadying assist 3 The helper provides less than half the effort to complete the activity 2 The helper provides more than half the effort to complete the activity 1 Dependent. The helper does all the effort to complete an activity 7 Patient refused to complete or attempt activity 9 The patient did not perform the activity before the current illness or injury 88 Not attempted due to Medical conditions or safety concerns Functional Abilities and Goals: Independent: Patient completed the activities by him/herself, with or without an assistive device, with no assistance from a helper. Needed Some Help: Patient needed partial assistance from another person to complete activities. Dependent: A helper completed the activities for the patient. Unknown: Not Applicable: Bed Mobility: 7 Transfers (B,C,W/C) (FIM): 7 Gait: 7 Stairs: 7 Indoor Mobility (Ambulation): Independent Stairs: Independent PT Evaluation-Current Subjective Pt was in bed with in room and nurse office assistant trying to get SCD's to work properly. Pt agreed to PT. Reports that he had gotten up to the bathroom already. Pain Numeric Pain Scale: 5-Moderate Pain Location: Right Location Body Site: Knee Objective Patient Orientation: Person, Place, Situation, Normal For Age Attachments: SCD's, Polar Pack, IV ROM/Strength ROM Lower Extremities LLE WNL RLE knee flex 90 and ext +3 Strength Lower Extremities WNL did not test formally on RLE due to recent surgery Integumentary/Posture Bowel Incontinence: No Bladder Incontinence: No Neuromuscular (Tone, Coordination, Reflexes) NT Sensory Vision: Functional Hearing: Functional Sensation Right Lower Extremit: Intact Sensation Left Lower Extremity: Intact Transfers Therapy Code Descriptions/Definitions Functional Pickett Measure: 0=Not Assessed/NA 4=Minimal Assistance 1=Total Assistance 5=Supervision or Setup 2=Maximal Assistance 6=Modified Pickett 3=Moderate Assistance 7=Complete Pickett Transfers (B, C, W/C) (FIM): 5 Scootin Rollin Supine to/from Sit: 5 Sit to/from Stand: 5 Gait Mode of Locomotion: Walk Anticipated Mode of Locomotion: Walk Gait (FIM): 4 Distance (FIM): 3=150 ft Distance: 300' Gait Level of Assist: 4 Gait Persons Needed: 1 Gait Assistive Device: FWW Comments/Gait Description Pt amb with a decreased heel strike and reports that if he walks at a normal pace he is only putting 50% of his weight through RLE. If he slows down he is able to put full weight through RLE. Balance Sitting Static: Normal Sitting Dynamic: Normal Standing Static: Good Standing Dynamic: Good Assessment/Needs Pt was able to perform supine LE ex of (AP, HS, quad sets, SAQ, and SLR) of 10 reps each. Pt was able to get from supine to EOB with no assistance besides removal of polar pack and SCD's. Pt is able to transfer sit<>stand with CGA to FWW. Pt amb 300' with FWW and CGA. Pt returned to room to bed and is now on CPM. CPM is set at 80 flex and -2 ext. Pt has nurse call, phone, tray, SCD's on. Rehab Potential: Fair PT Short Term Goals Short Term Goals Time Frame: Sep 21, 2018 Transfers (B,C,W/C) (FIM): 6 Gait (FIM): 6 Distance (FIM): 3=150 ft Gait Distance Comment: 400' Gait Level of Assist: 6 Gait Assistive Device: FWW PT Plan Problem List Problem List: Activity Tolerance, Functional Strength, Safety, Balance, Gait, Transfer, Bed Mobility, ROM Treatment/Plan Treatment Plan: Continue Plan of Care Treatment Plan: Bed Mobility, Education, Functional Activity [place], Functional Strength, Gait, Safety, Therapeutic Exercise, Transfers Treatment Duration: Sep 21, 2018 Frequency: 11 times per week Estimated Hrs Per Day: .25 hour per day Patient and/or Family Agrees t: Yes Safety Risks/Education Patient Education: Gait Training, Transfer Techniques, Reviewed Precautions, Reviewed Use of Ice, Correct Positioning, Safety Issues Teaching Recipient: Patient Teaching Methods: Demonstration, Discussion Response to Teaching: Reinforcement Needed Discharge Recommendations Plan Patient will perform bed mobility and transfer training, balance and endurance training, functional strengthening, stair training, gait training, and education , to improve functional mobility and independence at home. Therapy D/C Recommendations: Home w/ Family Support, Physical Therapy Home Care Time/GCodes Time In: 1320 Time Out: 1355 Total Billed Treatment Time: 35 Total Billed Treatment 1 visit EVL 20 min GT 15 min YOLA WRAY PT Sep 14, 2018 14:05
[2018-09-14] MEDS: CEFUROXIME INJECTION 750 MG in NS (IVPB) 50 ML IV SCH ×2 (15:50→23:45)
[2018-09-14 16:00] VITALS: BP 150/79
[2018-09-14 18:00] VITALS: BP 154/72
[2018-09-14] MEDS ORDERED: FAMOTIDINE 20 MG (PEPCID) TABLET PO PRN (19:45)
[2018-09-14 20:00] VITALS: BP 154/72
--- NOTE | 2018-09-14 20:45 | NUR ---
1930-PT REPORTED ACID REFLUX 1945-PRN PEPCID 20 MG GIVEN 2029-PT DENIES ACID REFLUX STILL BOTHERING HIM.
[2018-09-15] VITALS (7 sets, daily range): BP systolic 130–162; BP diastolic 62–79
[2018-09-15] MEDS: NS IV 1000 ML 1,000 ML IV SCH ×3 (02:50→14:37)
[2018-09-15] MEDS: MULTIVIT W/MINERALS TAB (THERAGRAN M) PO SCH (06:02)
[2018-09-15 06:11] LABS: HEMOGLOBIN 11.9 G/DL (13.3-17.7)
--- NOTE | 2018-09-15 07:48 | Anesthesia-General Post-Op ---
General Patient Condition Mental Status/LOC: Same as Preop Cardiovascular: Satisfactory Nausea/Vomiting: Absent Respiratory: Satisfactory Pain: Controlled Complications: Absent Post Op Complications Complications None Follow Up Care/Instructions Patient Instructions None needed. Anesthesia/Patient Condition Patient Condition Patient is doing well, no complaints, stable vital signs, no apparent adverse anesthesia problems. No complications reported per nursing. LASHELL GALLOWAY CRNA Sep 15, 2018 07:48
--- NOTE | 2018-09-15 08:00 | Progress Note-Standard ---
Standard Progress Note Progress Notes/Assess & Plan Date Seen by a Provider: Sep 15, 2018 Time Seen by a Provider: 07:59 Progress/Assessment & Plan post op check no complaints radiographs hardware well aligned. no fractures RLE--intact DF and PF of toes and ankle. 2 plus DP pulse with brisk cap refill. sensation intact throughout s/p RTKA mobilize as able Final Diagnosis no complaints Vital Signs Date Time Temp Pulse Resp B/P (MAP) Pulse Ox O2 Delivery O2 Flow Rate FiO2 09/15/18 07:45 97.2 72 20 162/72 (102) 97 Room Air 09/15/18 07:00 18 09/15/18 06:08 98.0 88 20 136/68 (90) 96 Room Air 09/15/18 00:43 98.8 73 18 130/64 (86) 96 Room Air 09/14/18 21:00 Room Air 09/14/18 20:00 97.2 84 19 154/72 (99) 95 Room Air 09/14/18 19:00 18 09/14/18 18:00 97.2 84 19 154/72 (99) 95 Room Air 09/14/18 16:00 99.1 76 20 150/79 (102) 97 Room Air 09/14/18 14:33 Room Air 09/14/18 12:00 97.1 74 18 144/76 (98) 96 Room Air 09/14/18 10:40 Room Air I & O 09/15/18 07:00 Intake Total 3950 ml Balance 3950 ml Laboratory Tests Test 09/15/18 05:40 Range/Units Hemoglobin 11.9 L 13.3-17.7 G/DL Hematocrit 37 L 40-54 % RLE--NVI distally. No calf tenderrness. Neg [place]'s s/p RTKA doing well continue mobilizing JUAN DAVID WADDELL MD Sep 15, 2018 08:00
--- NOTE | 2018-09-15 08:01 | NUR ---
DR. WADDELL ON FLOOR TO ASSESS PATIENT AND GAVE VERBAL ORDER TO RESTART HOME MEDICATIONS.
[2018-09-15] MEDS: SENNA W/DOCUSATE (SENOKOT S) TABLET PO SCH ×2 (08:46→20:01)
[2018-09-15] MEDS: ASPIRIN E.C. 81 MG (ECOTRIN) TAB PO SCH ×2 (08:47→08:51)
[2018-09-15] MEDS: ENOXAPARIN 30 MG/0.3 ML (LOVENOX) SYR SC SCH ×2 (08:47→18:25)
[2018-09-15] MEDS: OMEGA 3 (FISH OIL) 1000 MG CAP PO SCH (08:48)
[2018-09-15] MEDS: ALPRAZolam 0.25 MG (XANAX) TAB PO SCH ×2 (08:48→08:56)
[2018-09-15] MEDS: FAMOTIDINE 20 MG (PEPCID) TABLET PO SCH (08:57)
[2018-09-15] MEDS ORDERED: MELOXICAM 7.5 MG (MOBIC) TABLET PO SCH (09:00)
[2018-09-15] MEDS ORDERED: HYDROCHLOROTHIAZIDE 25 MG (HCTZ) TAB PO SCH (09:00)
[2018-09-15] MEDS ORDERED: amLODIPine 10 MG (NORVASC) TAB PO SCH (09:00)
[2018-09-15] MEDS ORDERED: OLMESARTAN 20 MG (BENICAR) TABLET PO SCH (09:00)
--- NOTE | 2018-09-15 09:38 | Physical Therapy Daily Note ---
PT Daily Note-Current Subjective Pt was in bed and agreed to PT. Reports that he was not able to sleep at all but he says that it wasn't due to pain. Pain Numeric Pain Scale: 3 Location: Right Location Body Site: Knee Mental Status Patient Orientation: Person, Normal For Age Attachments: IV Transfers Therapy Code Descriptions/Definitions Functional Sutter Measure: 0=Not Assessed/NA 4=Minimal Assistance 1=Total Assistance 5=Supervision or Setup 2=Maximal Assistance 6=Modified Sutter 3=Moderate Assistance 7=Complete Sutter Therapy Quality Codes: 6 Independent with activity with or without an assistive device 5 Patient requires set up or clean up by helper. Patient completes activity by themselves 4 Supervision or touching assist (CGA). [place] provide cues , steadying assist 3 The helper provides less than half the effort to complete the activity 2 The helper provides more than half the effort to complete the activity 1 Dependent. The helper does all the effort to complete an activity 7 Patient refused to complete or attempt activity 9 The patient did not perform the activity before the current illness or injury 88 Not attempted due to Medical conditions or safety concerns Transfers (B, C, W/C) (FIM): 6 Scootin Supine to/from Sit: 6 Sit to/from Stand: 6 Weight Bearing Right Lower Extremity: Right Weight Bearing/Tolerated Left Lower Extremity: Left Full Weight Bearing Gait Training Gait (FIM): 5 Distance (FIM): 3=150 ft Distance: 150 Gait Level of Assist: 5 Gait Persons Needed: 1 Gait Assistive Device: FWW Pt amb was antalgic and was not putting 50% of weight through RLE. PT instructed pt to step with a heel first pattern instead of on his toes. Exercises Supine Ex: Ankle pumps, Quad Set, Heel Slides, Short Arc Quads, Straight leg raise Supine Reps: 15 Assessment Current Status: Fair Progress Pt was able to perform supine ex in bed with min A due to pain and tightness. Pt is modified indep with bed mobility. Pt transfers to FWW from EOB modified indep. Pt amb 150' with FWW and SBA due to IV. Pt returned to bed and is on CPM at 80 flex and -2 ext. Pt has all needs met. PT Short Term Goals Short Term Goals Time Frame: Sep 21, 2018 Transfers (B,C,W/C) (FIM): 6 Gait (FIM): 6 Distance (FIM): 3=150 ft Gait Distance Comment: 400' Gait Level of Assist: 6 Gait Assistive Device: FWW PT Plan Problem List Problem List: Activity Tolerance, Functional Strength, Safety, Balance, Gait Treatment/Plan Treatment Plan: Continue Plan of Care Treatment Plan: Bed Mobility, Education, Functional Activity Rasta, Functional Strength, Gait, Safety, Therapeutic Exercise, Transfers Treatment Duration: Sep 21, 2018 Frequency: 11 times per week Estimated Hrs Per Day: .25 hour per day Patient and/or Family Agrees t: Yes Time/GCodes Time In: 810 Time Out: 833 Total Billed Treatment Time: 23 Total Billed Treatment 1 visit Gt 10 min Ex 13 min DANETTE RESTREPO PT Sep 15, 2018 09:38
--- NOTE | 2018-09-15 09:38 | NUR ---
CM/SS met with the patient for discharge planning. Patient would like [facility] pt from [facility]. He reports he has a FWW and has a CPM machine. Will fax the [facility] information when have discharge instructions likely on 09/16.
--- NOTE | 2018-09-15 12:46 | Occ Therapy Progress Note ---
Therapy Progress Note OT order received, chart reviewed. Pt. dressed and in bed. OT explained self to pt. Pt. states that he had his previous knee done 6 months ago, and has all needed equipment at home. Pt. states that he is doing well, and has not had any difficulty getting to the bathroom. OT offers to assist him to shower. Pt. declines and states that he is fine. States that he has no need for skilled training at this time. All needs met in room. 1, visit 1050 ENZO MONTOYA OT Sep 15, 2018 12:46
[2018-09-15] MEDS: oxyCODONE/APAP 5/325MG (PERCOCET 5) TABLET PO PRN ×4 (14:33→23:40)
--- NOTE | 2018-09-15 14:50 | Physical Therapy Daily Note ---
PT Daily Note-Current Subjective Pt was in bed and was in room. Pt reports that he doesn't know if it was the CPM but his hip hurts and his knee pain is excruciating. Pt agrees to PT. Pain Numeric Pain Scale: 10-Worst Possible Pain Location: Right Location Body Site: Knee Mental Status Patient Orientation: Person, Place, Situation, Normal For Age Attachments: Polar Pack, IV Transfers Therapy Code Descriptions/Definitions Functional Elk Measure: 0=Not Assessed/NA 4=Minimal Assistance 1=Total Assistance 5=Supervision or Setup 2=Maximal Assistance 6=Modified Elk 3=Moderate Assistance 7=Complete Elk Therapy Quality Codes: 6 Independent with activity with or without an assistive device 5 Patient requires set up or clean up by helper. Patient completes activity by themselves 4 Supervision or touching assist (CGA). [place] provide cues , steadying assist 3 The helper provides less than half the effort to complete the activity 2 The helper provides more than half the effort to complete the activity 1 Dependent. The helper does all the effort to complete an activity 7 Patient refused to complete or attempt activity 9 The patient did not perform the activity before the current illness or injury 88 Not attempted due to Medical conditions or safety concerns Transfers (B, C, W/C) (FIM): 4 Scootin Supine to/from Sit: 4 Sit to/from Stand: 5 Weight Bearing Right Lower Extremity: Right Weight Bearing/Tolerated Left Lower Extremity: Left Full Weight Bearing Gait Training Gait (FIM): 5 Distance (FIM): 3=150 ft Distance: 200' Gait Level of Assist: 5 Gait Persons Needed: 1 Gait Assistive Device: FWW Pt has antalgic gait and continues to walk on RLE very gingerly. PT instructs pt to put weight through and that it will help with the pain. Exercises Supine Ex: Ankle pumps (PROM), Heel Slides (PROM) Supine Reps: 10 Assessment Current Status: Fair Progress Pt was able to get from supine to EOB with min A due to pain. Pt was able to sit <>stand to FWW with SBA. Pt amb 200' with FWW and SBA. Pt returned to room and got back in bed. Pt was min A getting back in bed with helping him. SPT performed PROM/stretching for gastroc tightness and quad/hamstring tightness. Pt was not informed that he could take pain pills every 2 hrs and has not had any except through his IV. PT informed him that he can take pain pills as well every 2 hrs. RN notified and issued pain medication. Pt is now in bed with all needs met. PT Short Term Goals Short Term Goals Time Frame: Sep 21, 2018 Transfers (B,C,W/C) (FIM): 6 Gait (FIM): 6 Distance (FIM): 3=150 ft Gait Distance Comment: 400' Gait Level of Assist: 6 Gait Assistive Device: FWW PT Plan Problem List Problem List: Activity Tolerance, Functional Strength, Safety, Balance, Gait, Transfer, Bed Mobility, ROM Treatment/Plan Treatment Plan: Continue Plan of Care Treatment Plan: Bed Mobility, Education, Functional Activity Rasta, Functional Strength, Gait, Safety, Therapeutic Exercise, Transfers Treatment Duration: Sep 21, 2018 Frequency: 11 times per week Estimated Hrs Per Day: .25 hour per day Patient and/or Family Agrees t: Yes Time/GCodes Time In: 1420 Time Out: 1438 Total Billed Treatment Time: 18 Total Billed Treatment 1 visit FA 18 min DANETTE RESTREPO PT Sep 15, 2018 14:50
[2018-09-15] MEDS ORDERED: SIMvastatin 20 MG (ZOCOR) TAB PO SCH (21:00)
[2018-09-15] MEDS ORDERED: FENOFIBRATE 134 MG (LOFIBRA) CAPSULE PO SCH (21:00)
[2018-09-16 02:54] VITALS: BP 144/89
[2018-09-16] MEDS: NS IV 1000 ML 1,000 ML IV SCH (03:39)
[2018-09-16] MEDS: oxyCODONE/APAP 5/325MG (PERCOCET 5) TABLET PO PRN (03:40)
[2018-09-16 04:47] VITALS: BP 144/89
[2018-09-16 05:53] LABS: HEMOGLOBIN 11.9 G/DL (13.3-17.7)
[2018-09-16] MEDS: ENOXAPARIN 30 MG/0.3 ML (LOVENOX) SYR SC SCH (05:53)
[2018-09-16] MEDS: MULTIVIT W/MINERALS TAB (THERAGRAN M) PO SCH (05:53)
[2018-09-16] MEDS: OMEGA 3 (FISH OIL) 1000 MG CAP PO SCH (05:53)
--- NOTE | 2018-09-16 06:57 | NUR ---
MORPHINE CAD PUMP DC'D 45ML MORPHINE WASTED AND WITNESSED WITH SOTO KOCH
--- NOTE | 2018-09-16 06:59 | Progress Note-Standard ---
Standard Progress Note Progress Notes/Assess & Plan Date Seen by a Provider: Sep 16, 2018 Time Seen by a Provider: 06:58 Progress/Assessment & Plan post op check no complaints radiographs hardware well aligned. no fractures RLE--intact DF and PF of toes and ankle. 2 plus DP pulse with brisk cap refill. sensation intact throughout s/p RTKA mobilize as able Final Diagnosis no complaints Vital Signs Date Time Temp Pulse Resp B/P (MAP) Pulse Ox O2 Delivery O2 Flow Rate FiO2 09/16/18 05:54 18 09/16/18 04:47 98.0 83 18 144/89 (107) 98 Room Air 09/16/18 02:54 98.0 83 18 144/89 (107) 98 Room Air 09/15/18 23:32 98.1 74 18 137/79 (98) 96 Room Air 09/15/18 20:00 Room Air 09/15/18 19:18 99.3 65 18 139/67 (91) 93 Room Air 09/15/18 18:38 18 09/15/18 16:45 99.5 67 20 148/76 (100) 96 Room Air 09/15/18 12:00 98.0 78 18 138/62 (87) 96 Room Air 09/15/18 09:14 Room Air 09/15/18 07:45 97.2 72 20 162/72 (102) 97 Room Air 09/15/18 07:00 18 I & O 09/16/18 07:00 Intake Total 3680 ml Balance 3680 ml Laboratory Tests Test 09/16/18 05:30 Range/Units Hemoglobin 11.9 L 13.3-17.7 G/DL Hematocrit 38 L 40-54 % RLE--incision clean and dry. No calf tenderness. Neg [place]'s. s/p RTKA doing well DC home JUAN DAVID WADDELL MD Sep 16, 2018 06:59
[2018-09-16] MEDS ORDERED: morphine INJ 4 MG/ML 1 ML (VIAL/SYRINGE) IVP PRN (07:00)
--- NOTE | 2018-09-16 08:39 | NUR ---
CM/SS had the patient sign choice form that [facility] was his preference for [facility] PT. Choice form is in patient chart. Spoke with [facility], provided necessary information by phone and faxed facesheet, discharge info, and C orders.
--- NOTE | 2018-09-16 09:00 | NUR ---
Pt elected to take his morning meds at home so there was no confusion on what meds he needed to take.
--- NOTE | 2018-09-16 09:09 | Physical Therapy Progress Note ---
Therapy Progress Note PT attempt to treat patient at 800, however, he adamantly declined stating he is able to perform exercises and ambulate on his own and is waiting for his spouse to go home. Patient reports his patient is better on this date. Patient dismissed to home with spouse and home health intervention. 1 ref/DC DANETTE RESTREPO PT Sep 16, 2018 09:09
--- NOTE | 2018-09-17 02:54 | DISCHARGE SUMMARY ---
DATE OF SERVICE: DIAGNOSES: 1. Right knee primary osteoarthritis. 2. Hypertension. PROCEDURE: Right total knee arthroplasty. SUMMARY: The patient is a 68-year-old gentleman who was admitted the day of a right total knee arthroplasty, which he underwent without complications. Postoperatively, he did very well. At the time of discharge, he had attained independent status with physical therapy. His wound was clean and dry. He had no calf tenderness. Negative Homans sign. He was tolerating his diet well and tolerating pain with oral pain medication. CONDITION ON DISCHARGE: Good. DISCHARGE DIET: Regular. FOLLOWUP: Follow up is in three weeks. DISCHARGE MEDICATIONS: Home medications, aspirin and Percocet as needed for pain. ACTIVITY: Weightbearing as tolerated right lower extremity with assistive devices as needed. DIET: Regular. 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
== END 2018-09-16 09:05 | disposition home health service (06) | DRG 470 ==
LOC: SURG 06:12 → 4TH 10:40
PROVIDERS: ADMIT Orthopaedic Surgery; ATTEND Orthopaedic Surgery
PROC: 0SRC0J9 Replacement of Right Knee Joint with Synthetic Substitute, Cemented, Open Approach (ICD-10-PCS; principal; 2018-09-14 07:29)
DX: M17.11 Unilateral primary osteoarthritis, right knee (principal); I10 Essential (primary) hypertension; K21.9 Gastro-esophageal reflux disease without esophagitis; I25.10 Atherosclerotic heart disease of native coronary artery without angina pectoris; F17.210 Nicotine dependence, cigarettes, uncomplicated; F41.9 Anxiety disorder, unspecified; Z96.652 Presence of left artificial knee joint
CPT/HCPCS: 36415; 73560; 85014; 85018; 86850; 86900; 86901; 94664

== ENCOUNTER → 2020-06-26 | Outpatient (CLI) | payer BC, MEDICARE ==
[~2020-06-26] MED LIST changes: +ALPR.25T PO; -ALPR0.254 PO; +ASPI-1238 PO; -ASPI-983 PO; +FENO145T26 PO; -FENO145T37 PO; +FISH OIL 1,3601 EACH PO; -OMEG-164 PO; -RANI-591 PO; +RANI-603 PO; +SIMV20TA26 PO; -SIMV20TA3 PO
== END ==
LOC: CARD 12:24
PROVIDERS: ATTEND Internal Medicine Cardiovascular Disease
DX: I51.7 Cardiomegaly (principal); I10 Essential (primary) hypertension; E78.2 Mixed hyperlipidemia; Z82.49 Family history of ischemic heart disease and other diseases of the circulatory system
CPT/HCPCS: 93306